=== PATIENT | male | born 1935 | race Caucasian/White ===

== ENCOUNTER 2018-03-30 08:30 | Day surgery (SDC) | payer OTHER ==
--- OUTSIDE RECORDS SUMMARY | 2018-03-30 08:51 | XMS REPORT | Continuity of Care Document ---
:1935 Author Organization Interface Problems Problem Status Onset Date Classification Date Comments Source Reported Medications Medication Details Route Status Patient Ordering Order Source Instructions Provider Date Allergies, Adverse Reactions, Alerts Substance Category Reaction Severity Reaction Status Date Comments Source type Reported Immunizations Immunization Date Given Site Status Last Updated Comments Source Results Order Results Value Reference Date Interpretation Comments Source Name Range Vital Signs Vital Sign Value Date Comments Source Encounters Location Location Encounter Encounter Reason Attending ADM DC Status Source Details Type Number For Provider Date Date Visit Outpatient [id number] DIXON 12/26 [facility] [place] Outpatient [id number] DIXON 01/[address] Procedures Procedure Code Date Perfomer Comments Source
[2018-03-30] MEDS ORDERED: NS 0.9% VIAL 10 ML ONE (09:15)
[2018-03-30] MEDS ORDERED: NA CHLORIDE 0.9% 500 ML ONE (10:15)
[2018-03-30] MEDS: CYCLOPENTOLATE 1% OPTH 2 ML ONE ×3 (10:30→10:43)
[2018-03-30] MEDS: PHENYLEPHRINE 10% OPTH 5ML ONE ×3 (10:30→10:43)
[2018-03-30] MEDS: TETRACAINE HCL 0.5% 2ML OPTH ONE ×3 (10:56→11:58)
[2018-03-30] MEDS: LIDOCAINE 2% MPF 5 ML VIAL ONE ×2 (10:57→11:59)
[2018-03-30] MEDS: BUPIVACAINE 0.25% PF 10 ML VIAL ONE ×2 (10:57→11:59)
[2018-03-30] MEDS ORDERED: PROPOFOL 200 MG/20 ML VIAL IV ONE (11:50)
[2018-03-30] MEDS ORDERED: LIDOCAINE 1% MPF 2 ML AMPULE ONE (11:51)
[2018-03-30] MEDS: BALANCED SALT IRRIG PLAIN 500 ML BTL IRR ONE ×2 (12:12→12:15)
[2018-03-30] MEDS: MOXIFLOXACIN HCL 10 DROPS/ML **OR USE OPTH ONE ×2 (12:12→12:36)
[2018-03-30] MEDS: DUOVISC 1 KIT OPTH ONE ×2 (12:12→12:36)
[2018-03-30] MEDS: EPINEPHRINE/PF 1 MG/ML AMP ONE ×2 (12:12→12:15)
--- NOTE | 2018-03-30 12:55 | P.BOP ---
Preoperative diagnosis: Nuclear sclerotic and cortical cataract OD Postoperative diagnosis: Same Primary procedure: Phacoemulsification with IOL OD Estimated blood loss: None Anesthesia: Local (Subtenon's infusion with anesthesia for cataract surgery) Complications: None Implants: ZCB00 +19.0 Transferred to: Other (Day surgery) Condition: Good
--- NOTE | 2018-03-31 | OP ---
Date of Procedure: 03/30/2018 Surgeon: Mavis Pritchard MD Anesthesiologist: Yesi Ugalde C.R.N.A. and Ron Roman M.D. Diagnosis: Nuclear sclerotic and cortical cataract, OD. Procedure: Phaco with IOL, OD. Anesthesia: Per cataract surgery. Complications: None. Description Of Procedure: In day surgery, the patient was prepped with Betadine and draped. A conju nctival incision was made in the inferior nasal quadrant with Yohana scissors. A sub-Tenon block c onsisting of a 1:1 mixture of 2% Xylocaine and 0.25% bupivacaine was placed through the conjunctival incision with a blunt cannula. A Honan balloon was placed over the eye and the patient was transferr ed to the operating room. In the operating room, the patient was prepped and draped in the usual sterile fashion for ophthalmic surgery. A lid speculum was placed in the right eye. Two paracentesis sites were made superiorly a nd inferiorly in the limbal cornea. Viscoat was placed in the anterior chamber and a crescent blade was used to make a corneal groove and tunnel, and a keratome was used to enter the anterior chamber. Provisc was placed in the anterior chamber and a 360-degree capsulotomy was performed with a cystito me. The lens was hydrodissected with BSS and rotated freely. The lens was removed with a stop and c hop technique. A 5.39 phaco CDE was used to remove the lens. Residual cortex was removed with the i rrigation and aspiration. Provisc was placed in the capsular bag. A ZCB00 +19.0 lens was placed in the capsular bag without complications. Irrigation and aspiration were used to remove residual visco elastic. The paracentesis sites were hydrated with BSS. The wound and paracentesis sites were inspe cted and found to be watertight. Vigamox 0.07 cc was placed intracamerally at the end of the procedu re. The eye was irrigated with balanced salt solution. The eye was patched with a soft cotton patch and Feliciano metal shield. The patient was returned to day surgery in good condition. Comments: The lens was hydrodelineated. Discharge Instructions: Mr. Encinas is discharged to home in good condition and is to follow up rc Pritchard in the morning. J CARLOSL/MODL Voice ID: [id number] Report ID: [id number]
[2018-03-31 14:34] VITALS: BP 148/62; TEMP 96.7; O2SAT 98
== END 2018-03-30 13:09 | disposition home or self-care (01) ==
LOC: OR 08:30
PROVIDERS: ATTEND Ophthalmology Retina Specialist
PROC: 08RJ3JZ Replacement of Right Lens with Synthetic Substitute, Percutaneous Approach (ICD-10-PCS; principal; 2018-03-30 10:45)
DX: H25.11 Age-related nuclear cataract, right eye (principal); H25.011 Cortical age-related cataract, right eye; I25.10 Atherosclerotic heart disease of native coronary artery without angina pectoris; E07.9 Disorder of thyroid, unspecified; Z95.1 Presence of aortocoronary bypass graft; Z95.5 Presence of coronary angioplasty implant and graft; Z87.891 Personal history of nicotine dependence
CPT/HCPCS: 66984; J0171; J2001

== ENCOUNTER 2018-08-26 21:27 | Emergency (ER) | payer OTHER ==
--- OUTSIDE RECORDS SUMMARY | 2018-08-26 21:29 | XMS REPORT | Continuity of Care Document ---
[...] Number For Provider Date Date Visit Outpatient [id number] DIXON 12/26 [facility] [place] Outpatient [id number] DIXON 01/[address] Procedures Procedure Code Date Perfomer Comments Source
--- OUTSIDE RECORDS SUMMARY | 2018-08-26 21:29 | XMS REPORT ---
:1935 Author Organization [facility] Address [address] [place] [address] Dr. Vega. [address] [place] [id number] Care Team Providers Name Role Phone Unavailable Unavailable Unavailable Problems This patient has no known problems. Allergies, Adverse Reactions, Alerts This patient has no known allergies or adverse reactions. Medications This patient has no known medications.
--- NOTE | 2018-08-26 22:18 | ER ---
Nurse's Notes [facility] Name: Alexander Encinas Age: 82 yrs Sex: Male : 1935 Arrival Date: 08/26/2018 Time: 21:31 Bed 23 Private MD: Diagnosis: Retention of urine Presentation: 08/26 21:35 Presenting complaint: Patient states: He has a TURP done yesterday and his catheter was aj1 discontinued this morning at 0800, he has not been able to urinate since, except for dribbles. Patient spoke with Dr. Layne who advised him to come to the ER to have his catheter replaced. Patient reports suprapubic pain at this time. Transition of care: patient was not received from another setting of care. Onset of symptoms was August 26, 2018. Risk Assessment: Do you want to hurt yourself or someone else? Patient reports no desire to harm self or others. Initial Sepsis Screen: Does the patient meet any 2 criteria? No. Patient's initial sepsis screen is negative. Does the patient have a suspected source of infection? No. Patient's initial sepsis screen is negative. Care prior to arrival: None. 21:35 Method Of Arrival: Ambulatory aj1 21:35 Acuity: KENN 3 aj1 Triage Assessment: 21:39 General: Appears in no apparent distress. uncomfortable, Behavior is calm, cooperative, aj1 appropriate for age. Pain: Complains of pain in suprapubic area Pain currently is 2 out of 10 on a pain scale. Neuro: Level of Consciousness is awake, alert, obeys commands. Cardiovascular: Patient's skin is warm and dry. Respiratory: Airway is patent Respiratory effort is even, unlabored, Respiratory pattern is regular, symmetrical. : Reports inability to void. Historical: - Allergies: 21:39 NKDA; aj1 - Home Meds: 21:39 tamsulosin oral oral [Active]; Synthroid 75 mcg oral tab 1 tab once daily [Active]; aj1 finasteride 1 mg Oral tab 1 tab once daily [Active]; Inderal LA 60 mg oral Cs24 1 cap [Active]; clopidogrel 75 mg oral tab 1 tab once daily [Active]; - PMHx: 21:39 Arthritis; heart disease; Thyroid problem; triple bypass; aj1 - PSHx: 21:39 TURP; aj1 - Immunization history:: Flu vaccine is not up to date. - Social history:: Smoking status: Patient/guardian denies using tobacco. - Ebola Screening: : Patient denies travel to an Ebola-affected area in the 21 days before illness onset. Screenin:40 Abuse screen: Denies threats or abuse. Denies injuries from another. ca1 21:40 Nutritional screening: No deficits noted. Tuberculosis screening: No symptoms or risk ca1 factors identified. Fall Risk None identified. Assessment: 21:45 General: Appears in no apparent distress. comfortable, Behavior is calm, cooperative, ca1 appropriate for age. Pain: Denies pain. Neuro: Level of Consciousness is awake, alert, obeys commands, Oriented to person, place, time, situation. Cardiovascular: Heart tones S1 S2 present Capillary refill < 3 seconds Patient's skin is warm and dry. Respiratory: Airway is patent Respiratory effort is even, unlabored, Respiratory pattern is regular, symmetrical, GI: Abdomen is flat, non-distended, Bowel sounds present X 4 quads. Abd is soft and non tender X 4 quads. : Reports inability to void, since removal of Mullins at 0800. There were drops but nor stream. EENT: No deficits noted. No signs and/or symptoms were reported regarding the EENT system. Derm: Skin is intact, is healthy with good turgor, Skin is pink, warm \T\ dry. Musculoskeletal: Circulation, motion, and sensation intact. Capillary refill < 3 seconds. 22:00 Reassessment: Patient appears in no apparent distress at this time. Patient and/or ca1 family updated on plan of care and expected duration. Pain level reassessed. Patient is alert, oriented x 3, equal unlabored respirations, skin warm/dry/pink. Pt with Mullins to home per Dr. Layne. Vital Signs: 21:39 BP 158 / 80; Pulse 69; Resp 18; Temp 97.7; Pulse Ox 96% on R/A; Weight 74.84 kg (R); aj1 Height 5 ft. 8 in. (172.72 cm) (R); Pain 2/10; 22:20 BP 156 / 57; Pulse 71; Resp 19; Pulse Ox 98% on R/A; ca1 21:39 Body Mass Index 25.09 (74.84 kg, 172.72 cm) aj ED Course: 21:31 Patient arrived in ED. es 21:37 Triage completed. aj1 21:39 Arm band placed on Patient placed in an exam room. aj1 21:40 Patient has correct armband on for positive identification. Bed in low position. Call ca1 light in reach. Side rails up X 1. Pulse ox on. NIBP on. Warm blanket given. 21:41 Joann Mcintosh, RN is Primary Nurse. ca1 21:50 Nilson Barba MD is Attending Physician. 22:00 Mullins cath inserted, using sterile technique, 18 Fr., by me, balloon inflated, to ca1 gravity drainage, returned clear yellow urine. Patient tolerated well. 22:31 No provider procedures requiring assistance completed. Patient did not have IV access ca1 during this emergency room visit. Administered Medications: No medications were administered Output: 22:27 Urine: 750ml (Mullins); Total: 750ml. ca1 Outcome: 22:17 Discharge ordered by . 22:32 Discharged to home ambulatory, with family. ca1 22:32 Condition: stable 22:32 Discharge instructions given to patient, Instructed on discharge instructions, follow up and referral plans. Demonstrated understanding of instructions, follow-up care. 22:34 Patient left the ED. ca1 Signatures: Marlen Claudio RN RN aj1 Blossom Valencia Nilson Barba MD MD Joann Mcintosh RN RN ca1 Corrections: (The following items were deleted from the chart) 22:32 22:00 Mullins cath inserted, using sterile technique, 18 Fr., by me, balloon inflated, to ca1 gravity drainage, ca1
--- NOTE | 2018-08-26 22:18 | EDPHYS ---
Physician Documentation [facility] Name: Alexander Encinas Age: 82 yrs Sex: Male : 1935 Arrival Date: 08/26/2018 Time: 21:31 Bed 23 Private MD: ED Physician Nilson Barba HPI: 08/26 22:15 This 82 yrs old Male presents to ER via Ambulatory with complaints of Urinary gs Retention. 22:15 Onset: The symptoms/episode began/occurred today. Modifying factors: The symptoms are gs alleviated by nothing, the symptoms are aggravated by nothing. Associated signs and symptoms: Pertinent negatives: fever. Severity of symptoms: At their worst the symptoms were severe, in the emergency department the symptoms are unchanged. The patient has experienced similar episodes in the past, a few times. The patient has been recently seen by a physician: 2 day(s) ago, [place]. Historical: - Allergies: 21:39 NKDA; aj1 - Home Meds: 21:39 tamsulosin oral oral [Active]; Synthroid 75 mcg oral tab 1 tab once daily [Active]; aj1 finasteride 1 mg Oral tab 1 tab once daily [Active]; Inderal LA 60 mg oral Cs24 1 cap [Active]; clopidogrel 75 mg oral tab 1 tab once daily [Active]; - PMHx: 21:39 Arthritis; heart disease; Thyroid problem; triple bypass; aj1 - PSHx: 21:39 TURP; aj1 - Immunization history:: Flu vaccine is not up to date. - Social history:: Smoking status: Patient/guardian denies using tobacco. - Ebola Screening: : Patient denies travel to an Ebola-affected area in the 21 days before illness onset. ROS: 22:15 All other systems are negative. gs Exam: 22:15 Skin: Warm, dry with normal turgor. Normal color with no rashes, no lesions, and no gs evidence of cellulitis. MS/ Extremity: Pulses equal, no cyanosis. Neurovascular intact. Full, normal range of motion. Neuro: Awake and alert, GCS 15, oriented to person, place, time, and situation. Cranial nerves II-XII grossly intact. Motor strength 5/5 in all extremities. Sensory grossly intact. Cerebellar exam normal. Normal gait. 22:15 Constitutional: The patient appears alert, awake. 22:15 Cardiovascular: Exam negative for acute changes. 22:15 Respiratory: Exam negative for acute changes. 22:15 Abdomen/GI: Palpation: moderate abdominal tenderness, in the suprapubic area. 22:15 : Bladder: distension, that is severe. Vital Signs: 21:39 BP 158 / 80; Pulse 69; Resp 18; Temp 97.7; Pulse Ox 96% on R/A; Weight 74.84 kg (R); aj1 Height 5 ft. 8 in. (172.72 cm) (R); Pain 2/10; 22:20 BP 156 / 57; Pulse 71; Resp 19; Pulse Ox 98% on R/A; ca1 21:39 Body Mass Index 25.09 (74.84 kg, 172.72 cm) aj1 MDM: 22:04 Patient medically screened. gs 22:15 Differential diagnosis: urinary retention. Data reviewed: vital signs, nurses notes. gs Response to treatment: the patient's symptoms have markedly improved after treatment, and as a result, I will discharge patient. 08/26 21:51 Order name: Harpreet; Complete Time: 22:16 gs Administered Medications: No medications were administered Disposition: 08/26/18 22:17 Discharged to Home. Impression: Retention of urine. - Condition is Stable. - Discharge Instructions: Mullins Catheter Care, Adult, [id number]. - Medication Reconciliation Form, Thank You Letter, Antibiotic Education, Prescription Opioid Use form. - Follow up: Private Physician; When: 2 - 3 days; Reason: Re-evaluation by your physician. Signatures: Marlen Claudio RN RN aj1 Nilson Barba MD MD Joann Mcintosh RN RN ca1 Corrections: (The following items were deleted from the chart) 22:34 22:17 08/26/2018 22:17 Discharged to Home. Impression: Retention of urine. Condition is ca1 Stable. Forms are Medication Reconciliation Form, Thank You Letter, Antibiotic Education, Prescription Opioid Use. Follow up: Private Physician; When: 2 - 3 days; Reason: Re-evaluation by your physician. gs
[2018-08-27 00:49] VITALS: TEMP 97.7
[2018-08-27 00:52] VITALS: BP 156/57; O2SAT 98
== END 2018-08-26 22:34 | disposition home or self-care (01) ==
LOC: ER 21:27
DX: R33.9 Retention of urine, unspecified (principal); I51.9 Heart disease, unspecified; E07.9 Disorder of thyroid, unspecified
CPT/HCPCS: 51702; 99284